=== PATIENT | male | born 1940 | race African-American/Black ===

== ENCOUNTER 2019-03-09 14:56 | Emergency (ER) | payer MEDICARE, BC ==
[~2019-03-09] VITALS: Ht 175.3 cm; Wt 85.0 kg
[2019-03-09] MEDS ORDERED: SODIUM CHLORIDE 0.9% 1,000 ML IV ONE (18:17)
[2019-03-09 18:44] LABS: BASOPHILS % 0.8 % (0.0-2.0); EOSINOPHILS % 1.8 % (0.0-5.0); HEMATOCRIT. 39.8 % (42.0-52.0); HEMOGLOBIN. 13.6 g/dL (14.0-18.0); LYMPHOCYTES % 18.8 % (20.0-50.0); MEAN CORPUSCULAR HEMOGLOBIN 31.4 pg (28.0-32.0); MEAN PLATELET VOLUME 7.5 fl (7.4-10.4); MONOCYTES % 8.3 % (2.0-8.0); NEUTROPHILS % 70.3 % (40.0-76.0); PLATELET 204 x1000/uL (130-400); RED BLOOD CELL COUNT 4.33 mill/uL (4.7-6.1); RED CELL DISTRIBUTION WIDTH 13.6 % (11.6-14.6)
[2019-03-09 18:46] LABS: CLARITY URINE TURBID (CLEAR); COLOR URINE RED (YELLOW); KETONES URINE NEGATIVE (NEGATIVE); LEUKOCYTE ESTERASE URINE 3+ (NEGATIVE); NITRITE URINE POSITIVE (NEGATIVE); OCCULT BLOOD URINE 2+ (NEGATIVE); PROTEIN URINE 2+ (NEGATIVE); SPECIFIC GRAVITY URINE 1.012 (1.005-1.030); UROBILINOGEN URINE 0.2 E.U./dL (0.2-1.0)
[2019-03-09 18:50] LABS: CHLORIDE 108 mEq/L (98-107)
[2019-03-09 18:53] LABS: PARTIAL THROMBOPLASTIN TIME 27.6 sec (23.4-31.0); PROTHROMBIN TIME 10.1 sec (9.6-11.0)
[2019-03-09] MEDS ORDERED: CEFTRIAXONE 1 G PREMIX 50 ML IV ONE (21:45)
[2019-03-09 22:30] VITALS: BP 112/82
== END 2019-03-09 22:56 | disposition home or self-care (01) ==
LOC: ER 14:56
DX: R31.9 Hematuria, unspecified (principal); I10 Essential (primary) hypertension; E78.00 Pure hypercholesterolemia, unspecified; N40.0 Benign prostatic hyperplasia without lower urinary tract symptoms; Z88.8 Allergy status to other drugs, medicaments and biological substances
CPT/HCPCS: 36415; 76770; 80053; 81003; 83880; 84484; 85025; 85610; 85730; 87086; 93005; 96365; 99284; J0696; J7030

== ENCOUNTER 2024-10-03 10:33 | Inpatient (IN) | payer MEDICARE, BC ==
[~2024-10-03] VITALS: Ht 172.7 cm; Wt 79.4 kg
[2024-10-03 10:44] VITALS: O2SAT 100
[2024-10-03 11:34] LABS: HEMATOCRIT. 31.6 % (42.0-52.0); HEMOGLOBIN. 10.3 g/dL (14.0-18.0); MEAN CORPUSCULAR HEMOGLOBIN 29.3 pg (28.0-32.0); MEAN CORPUSCULAR HGB CONC 32.7 g/dL (31.0-37.0); MEAN CORPUSCULAR VOLUME 89.6 fL (80.0-94.0); MEAN PLATELET VOLUME 8.2 fl (7.4-10.4); PLATELET 161 x1000/uL (130-400); RED BLOOD CELL COUNT 3.52 mill/uL (4.7-6.1); RED CELL DISTRIBUTION WIDTH 13.6 % (11.6-14.6)
[2024-10-03 11:35] LABS: DIFFERENTIAL COMMENT 1
[2024-10-03 11:46] LABS: CHLORIDE 113 mEq/L (98-107); POTASSIUM 4.4 mEq/L (3.5-5.1); SODIUM 148 mEq/L (136-145)
[2024-10-03 11:47] LABS: CALCIUM 9.1 mg/dL (8.7-10.4); CARBON DIOXIDE 22 mEq/L (21-32)
[2024-10-03 11:52] LABS: CREATININE 2.5 mg/dL (0.6-1.3); GLUCOSE 97 mg/dL (70-105); UREA NITROGEN BLOOD 41 mg/dL (9-23)
[2024-10-03 11:53] LABS: TROPONIN I HIGH SENSITIVITY 15 ng/L (3.0-53)
[2024-10-03 12:02] LABS: PLATELET ESTIMATE NORMAL
[2024-10-03 14:41] LABS: TROPONIN I HIGH SENSITIVITY 12 ng/L (3.0-53)
[2024-10-03] MEDS ORDERED: IPRATROPIUM/ALBUTEROL 0.5-3(2.5)MG/3ML NEB HHN PRN (16:00)
[2024-10-03] MEDS ORDERED: GUAIFENESIN 200MG/10ML SUGAR FREE UDC PO PRN (16:00)
[2024-10-03] MEDS ORDERED: ONDANSETRON HCL 4MG/2ML INJ IV PRN (16:00)
[2024-10-03] MEDS ORDERED: ACETAMINOPHEN 325MG TABLET PO PRN ×2 (16:00)
[2024-10-03] MEDS ORDERED: DOCUSATE SODIUM 100MG CAPSULE PO PRN (16:00)
[2024-10-03] MEDS ORDERED: MAGNESIUM/ALUMINUM HYDROXIDE/SIMETHICONE 30ML UDC PO PRN (16:00)
[2024-10-03] MEDS ORDERED: OMEP40CA20 (16:15)
[2024-10-03] MEDS ORDERED: LEVO150T8 (16:15)
[2024-10-03] MEDS ORDERED: SODIUM CHLORIDE 0.9% 500 ML IV ONE (16:30)
[2024-10-03] MEDS ORDERED: HYDRALAZINE 20MG/ML VIAL IV PRN (16:45)
[2024-10-03 17:43] LABS: IRON 17 ug/dL (65-175)
[2024-10-03 17:45] LABS: TOTAL IRON BINDING CAPACITY 357 ug/dl (250-425)
[2024-10-03 17:48] LABS: FOLIC ACID (FOLATE) SERUM > 20.00 ng/mL (>5.38)
[2024-10-03 17:49] LABS: FERRITIN 67 ng/mL (22-322); VITAMIN B12 SERUM 810 pg/mL (211-911)
[2024-10-03] MEDS: ENOXAPARIN 30MG/0.3ML SYR SUBCUT SCH (20:26)
[2024-10-03] MEDS: SODIUM CHLORIDE 0.45% 500 ML IV ONE (20:27)
[2024-10-03 20:50] VITALS: BP 133/75; PULSE 60; RESP 16; TEMP 36.6
[2024-10-03] MEDS: AMLODIPINE 5MG TABLET PO SCH (23:43)
[2024-10-03] MEDS: LOSARTAN 25 MG TABLET PO SCH (23:43)
[2024-10-04] VITALS: BP 108/60; PULSE 54; RESP 18; TEMP 36.2; O2SAT 98
[2024-10-04 04:00] VITALS: BP 96/54; PULSE 61; RESP 18; TEMP 36.4; O2SAT 97
[2024-10-04] MEDS: LEVOTHYROXINE SODIUM 150MCG TABLET PO SCH (06:10)
[2024-10-04 08:18] LABS: CARBON DIOXIDE 23 mEq/L (21-32); CHLORIDE 112 mEq/L (98-107); POTASSIUM 4.4 mEq/L (3.5-5.1); SODIUM 146 mEq/L (136-145); T4 FREE 1.64 ng/dL (0.89-1.76); THYROID STIMULATING HORMONE < 0.10 uIU/mL (0.55-4.78)
[2024-10-04 08:21] LABS: HEMATOCRIT. 28.9 % (42.0-52.0); MEAN CORPUSCULAR HGB CONC 34.5 g/dL (31.0-37.0); MEAN CORPUSCULAR VOLUME 89.9 fL (80.0-94.0); MEAN PLATELET VOLUME 8.7 fl (7.4-10.4); PLATELET 167 x1000/uL (130-400); RED BLOOD CELL COUNT 3.22 mill/uL (4.7-6.1); RED CELL DISTRIBUTION WIDTH 13.6 % (11.6-14.6); WHITE BLOOD COUNT 4.4 x1000/uL (4.5-11.0)
[2024-10-04 08:23] LABS: GLUCOSE 90 mg/dL (70-105)
[2024-10-04 08:24] LABS: TRIGLYCERIDE 75 mg/dL (0-150); UREA NITROGEN BLOOD 38 mg/dL (9-23)
[2024-10-04 08:25] LABS: CHOLESTEROL 101 mg/dL (<200); LDL CHOLESTEROL 37 mg/dL (5-100)
[2024-10-04 08:26] LABS: HDL CHOLESTEROL 36 mg/dL (>55)
[2024-10-04 08:50] LABS: DIFFERENTIAL COMMENT 1
[2024-10-04] MEDS ORDERED: ENOXAPARIN 40MG/0.4ML SYR SUBCUT SCH (09:00)
[2024-10-04 09:17] VITALS: BP 97/59; PULSE 50; TEMP 36.9
[2024-10-04] MEDS: PANTOPRAZOLE 40MG DR TABLET PO SCH (09:43)
[2024-10-04] MEDS ORDERED: LEVOTHYROXINE SODIUM 125MCG TABLET PO SCH (13:00)
[2024-10-04 16:14] LABS: PLATELET ESTIMATE NORMAL
[2024-10-04 17:10] VITALS: BP 103/52; PULSE 50; TEMP 37.1; O2SAT 99
[2024-10-04 20:00] VITALS: BP 105/55; PULSE 55; RESP 16; TEMP 36.7; O2SAT 99
[2024-10-05] VITALS: BP 122/58; PULSE 51; RESP 12; TEMP 36.5; O2SAT 96
[2024-10-05 04:00] VITALS: BP 114/66; PULSE 47; RESP 17; TEMP 36.9; O2SAT 97
[2024-10-05] MEDS: LEVOTHYROXINE SODIUM 125MCG TABLET PO SCH (06:56)
[2024-10-05 07:57] LABS: POTASSIUM 4.3 mEq/L (3.5-5.1)
[2024-10-05 07:58] LABS: CALCIUM 8.7 mg/dL (8.7-10.4)
[2024-10-05 08:00] VITALS: BP 118/69; PULSE 49; RESP 18; TEMP 36.7; O2SAT 97
[2024-10-05 08:00] LABS: HEMATOCRIT. 29.6 % (42.0-52.0); HEMOGLOBIN. 9.8 g/dL (14.0-18.0); MEAN CORPUSCULAR HEMOGLOBIN 29.8 pg (28.0-32.0); MEAN CORPUSCULAR HGB CONC 33.3 g/dL (31.0-37.0); MEAN CORPUSCULAR VOLUME 89.5 fL (80.0-94.0); MEAN PLATELET VOLUME 8.2 fl (7.4-10.4); PLATELET 164 x1000/uL (130-400); RED CELL DISTRIBUTION WIDTH 13.4 % (11.6-14.6); WHITE BLOOD COUNT 3.2 x1000/uL (4.5-11.0)
[2024-10-05 08:03] LABS: CREATININE 1.8 mg/dL (0.6-1.3)
[2024-10-05 08:21] LABS: DIFFERENTIAL COMMENT 1
[2024-10-05] MEDS ORDERED: RIVA10TA PO (11:42)
[2024-10-05] MEDS ORDERED: PRAV20TA57 MT (11:42)
[2024-10-05 12:00] VITALS: BP 136/78; PULSE 51; RESP 18; TEMP 36.6; O2SAT 96
[2024-10-05 16:28] LABS: PLATELET ESTIMATE NORMAL
== END 2024-10-05 15:10 | disposition home or self-care (01) | DRG 309 ==
LOC: ER 10:50 → EDBEDREQ 13:11 → EDBEDREQTM 13:11 → EDBEDREQSVC 13:11 → 5WST 20:51
PROVIDERS: ADMIT Internal Medicine; ATTEND Internal Medicine
DX: I44.1 Atrioventricular block, second degree (principal); E87.0 Hyperosmolality and hypernatremia; N17.9 Acute kidney failure, unspecified; N13.30 Unspecified hydronephrosis; D64.9 Anemia, unspecified; E03.9 Hypothyroidism, unspecified; E78.00 Pure hypercholesterolemia, unspecified; I12.9 Hypertensive chronic kidney disease with stage 1 through stage 4 chronic kidney disease, or unspecified chronic kidney disease; M16.12 Unilateral primary osteoarthritis, left hip; N18.32 Chronic kidney disease, stage 3b; N40.0 Benign prostatic hyperplasia without lower urinary tract symptoms; Z96.642 Presence of left artificial hip joint; Z88.8 Allergy status to other drugs, medicaments and biological substances; Z79.01 Long term (current) use of anticoagulants; Z86.711 Personal history of pulmonary embolism; Z86.718 Personal history of other venous thrombosis and embolism
CPT/HCPCS: 36415; 71045; 76770; 80048; 80061; 82607; 82728; 82746; 83540; 83550; 84439; 84443; 84481; 84484; 85025; 93005; 93880; 99291; J1650

== ENCOUNTER 2024-10-13 20:57 | Emergency (ER) | payer MEDICARE, BC ==
[~2024-10-13] VITALS: Ht 172.7 cm; Wt 77.2 kg
[~2024-10-13 20:57] MED LIST: LEVO150T8; OMEP40CA20; PRAV20TA57 MT; RIVA10TA PO
[2024-10-13] MEDS: ACETAMINOPHEN 500MG TABLET PO ONE (23:38)
[2024-10-14] MEDS ORDERED: CEPH500T MT (00:30)
[2024-10-14 00:50] VITALS: BP 146/66; PULSE 74; RESP 16; TEMP 36.9; O2SAT 99
== END 2024-10-14 00:51 | disposition home or self-care (01) ==
LOC: ER 20:57
DX: L03.011 Cellulitis of right finger (principal); E03.9 Hypothyroidism, unspecified; E78.00 Pure hypercholesterolemia, unspecified; I10 Essential (primary) hypertension; K21.9 Gastro-esophageal reflux disease without esophagitis; N40.0 Benign prostatic hyperplasia without lower urinary tract symptoms; Z79.01 Long term (current) use of anticoagulants; Z79.899 Other long term (current) drug therapy; Z90.79 Acquired absence of other genital organ(s); Z95.0 Presence of cardiac pacemaker; Z96.649 Presence of unspecified artificial hip joint; Z98.890 Other specified postprocedural states; Z91.041 Radiographic dye allergy status; Z88.8 Allergy status to other drugs, medicaments and biological substances
CPT/HCPCS: 73130; 99283